=== PATIENT | female | born 1945 | race Caucasian/White ===

== ENCOUNTER 2021-07-01 15:56 | Emergency (ER) | payer MEDICARE, OTHER ==
[~2021-07-01] VITALS: Ht 157.5 cm; Wt 184.0 kg
[~2021-07-01 15:56] MED LIST: AMLO1TAB62 PO; ASPI81TA52 PO; FLUT50DI3 IH; SYN0.025T PO; ZET10T PO
[2021-07-01 16:16] VITALS: BP 117/72
[2021-07-01] MEDS ORDERED: SOTROVIMAB 500mg injection 500 MG in normal saline 100ml IV soln 100 ML IV ONE (17:50)
[2021-07-01] MEDS ORDERED: CASIRIVIMAB/IMDEVIMAB inject. 10 ML in normal saline 100ml IV soln 100 ML IV ONE (17:50)
[2021-07-01] MEDS ORDERED: BUDE180A INH (19:10)
[2021-07-01] MEDS ORDERED: ALBU6.7H9 INH (19:10)
[2021-07-01] MEDS ORDERED: ALB0.5UD IH (19:10)
== END 2021-07-01 19:23 | disposition home or self-care (01) ==
LOC: ER 15:57
DX: U07.1 COVID-19 (principal); J02.9 Acute pharyngitis, unspecified; J45.909 Unspecified asthma, uncomplicated; I10 Essential (primary) hypertension; Z87.891 Personal history of nicotine dependence; Z90.49 Acquired absence of other specified parts of digestive tract
CPT/HCPCS: 71045; 96365; 99284; J3490